=== PATIENT | female | born 1975 ===

== ENCOUNTER 2017-05-03 01:55 | Emergency (ER) | payer SELFPAY ==
[2017-05-03] MEDS ORDERED: CATAPRES PO ONE (02:46)
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
[2017-05-03 05:43] VITALS: BP 128/82
[2017-05-03] MEDS ORDERED: HALDOL IM ONE (07:12)
== END 2017-05-03 07:41 ==
LOC: ED 01:55 → EEVIPCON 01:55 → ED 07:41
DX: I10 Essential (primary) hypertension (principal); F31.9 Bipolar disorder, unspecified
CPT/HCPCS: 96372; 99283; J1630